=== PATIENT | male | born 1975 | race Caucasian/White ===

== ENCOUNTER 2017-05-24 08:03 | Emergency (ER) | payer OTHER ==
[2017-05-24 08:04] VITALS: TEMP 36.8
[2017-05-24] MEDS ORDERED: SODIUM CHLORIDE 0.9% 1000ML 1,000 ML IV STA (08:19)
[2017-05-24] MEDS ORDERED: HYDROmorphone INJ 0.5 MG/0.5 ML SYR IV STA ×2 (08:19→09:20)
[2017-05-24] MEDS ORDERED: ONDANSETRON INJ 2 MG/ML 2 ML VIAL IV STA (08:19)
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
--- NOTE | 2017-05-24 09:18 | DIAGNOSTIC IMAGING REPORT ---
LUMBAR SPINE WITHOUT HISTORY: 41 years-old Male Low back pain s/p heavy lifting. Symptoms are acute in nature. Acute syncopal event. COMPARISON: None available TECHNIQUE: Multiple axial CT images of the lumbar spine were obtained without IV contrast. Coronal and sagittal reformatted images were obtained from the axial data set and worsened for review. A dose lowering technique was used consistent with the principals of ALARA. FINDINGS: Large Schmorl's nodes are seen involving the superior endplates of the L3 and L4 vertebral bodies. Chronic at L4 and acute to subacute at L3. No significant loss of vertebral body height is seen anteriorly or posteriorly. There is 3 mm chronic appearing retropulsion involving the superior endplate at L4 seen nicely on image 53 of the sagittal bone window series. Alignment is otherwise within normal limits in the remaining vertebral body heights are well-maintained. Mild multilevel facet arthropathy is noted of the lower lumbar spine. The imaged intra-abdominal and intrapelvic structures demonstrate no acute abnormality. There is atherosclerotic plaquing of the abdominal aorta and iliac vasculature. Partially imaged metallic hardware involves the left ilium. There are degenerative changes of the bilateral sacroiliac joints. T11-T12: No significant central canal or foraminal narrowing. T12-L1: No significant central canal or foraminal narrowing. L1-L2: No significant central canal or foraminal narrowing. L2-L3: Mild facet arthrosis without significant central canal or foraminal narrowing. L3-L4: Mild facet arthrosis with broad-based posterior disc bulge and 3 mm chronic appearing retropulsion or retrolisthesis and ligamentum flavum redundancy causes moderate central canal narrowing and mild bilateral inferior neuroforaminal stenosis. L4-L5: Mild facet arthrosis and ligamentum flavum redundancy is noted with broad-based posterior disc bulge which flattens the ventral thecal sac causing mild central canal, moderate right and mild left foraminal stenosis. L5-S1: Mild facet arthrosis and minimal posterior intervertebral disc space narrowing is present with broad-based posterior disc bulge which effaces the ventral thecal sac. There is no significant central canal or foraminal narrowing. IMPRESSION: 1. Acute to subacute appearing Schmorl's node involves the superior endplate of L3 without significant loss of anterior or posterior vertebral body height. No associated significant central canal or foraminal narrowing at L2-L3. 2. Chronic appearing Schmorl's node involving the superior endplate L4 with associated 3 mm retropulsion at this level with associated broad-based posterior disc bulge, ligamentum flavum redundancy and mild facet arthrosis causes moderate central canal and mild bilateral inferior foraminal stenosis. 3. At L4-L5, broad-based posterior disc bulge is present with resultant mild central canal, moderate right and mild left foraminal stenosis. 4. Atherosclerotic vascular disease. The above report was generated using voice recognition software. It may contain grammatical, syntax or spelling errors. Electronically signed by: Mikal Travis M.D. 05/24/2017 9:16 AM Dictated Date/Time: 05/24/2017 9:03 AM
[2017-05-24 09:39] LABS: BLOOD UREA NITROGEN 8 mg/dl (7-18); BUN/CREATININE RATIO 9.2 (10-20); CALCIUM 8.5 mg/dl (8.5-10.1); CARBON DIOXIDE 27 mmol/L (21-32); CHLORIDE 110 mmol/L (98-107); GLUCOSE 92 mg/dl (70-99); POTASSIUM 4.1 mmol/L (3.5-5.1); SODIUM 141 mmol/L (136-145)
[2017-05-24 09:42] LABS: ALB/GLOB RATIO 1.2 (0.9-2); ALKALINE PHOSPHATASE 97 U/L (45-117); ALT/SGPT 34 U/L (12-78); AST/SGOT 23 U/L (15-37)
[2017-05-24 10:13] LABS: BASO % 0.8 %; BASO ABS # 0.08 K/uL (0-0.2); COMPLETE YES; EOS % 2.5 %; HEMATOCRIT 48.7 % (42-52); IG% 0.7 %; LYMPH % 24.9 %; LYMPH ABS # 2.63 K/uL (1.2-3.4); MEAN CELL VOLUME 94.6 fL (80-100); MEAN CORPUSCULAR HEMOGLOBIN 31.8 pg (25-34); MEAN CORPUSCULAR HGB CONC 33.7 g/dl (32-36); MONO % 5.9 %; NEUT % 65.2 %; PLATELET COUNT 310 K/uL (130-400); RED BLOOD COUNT 5.15 M/uL (4.7-6.1); WHITE BLOOD COUNT 10.56 K/uL (4.8-10.8)
[2017-05-24] MEDS ORDERED: OXYC1TAB3 PO ×2 (10:38→10:41)
[2017-05-24 10:57] VITALS: BP 141/83; PULSE 62; O2SAT 98
== END 2017-05-24 10:59 | disposition home or self-care (01) ==
LOC: EDBD 08:03 → C.EDA 08:05
DX: R55 Syncope and collapse (principal); M54.5 Low back pain; X50.0XXA Overexertion from strenuous movement or load, initial encounter; Y92.89 Other specified places as the place of occurrence of the external cause; Y99.0 Civilian activity done for income or pay; F17.210 Nicotine dependence, cigarettes, uncomplicated